=== PATIENT | female | born 1970 | race Caucasian/White ===

== ENCOUNTER 2025-04-16 07:22 | Day surgery (SDC) | payer BC ==
[~2025-04-16] VITALS: Ht 165.1 cm; Wt 73.9 kg
[2025-04-16] MEDS ORDERED: CELEXA40 M9 (07:32)
[2025-04-16] MEDS ORDERED: Lisinopril2.5 MG (07:33)
[2025-04-16] MEDS ORDERED: FAMO20 (07:33)
[2025-04-16] MEDS ORDERED: TRAZ50 (07:33)
[2025-04-16] MEDS ORDERED: EUTHYROX100 MC1 (07:33)
[2025-04-16 08:59] VITALS: BP 112/74
== END 2025-04-16 09:03 | disposition home or self-care (01) ==
LOC: ORSCSDS 07:22
PROVIDERS: Specialist
PROC: 0DB68ZX Excision of Stomach, Via Natural or Artificial Opening Endoscopic, Diagnostic (ICD-10-PCS; principal; 2025-04-16 08:15)
PROC: 0DB98ZX Excision of Duodenum, Via Natural or Artificial Opening Endoscopic, Diagnostic (ICD-10-PCS; principal; 2025-04-16 08:15)
PROC: 0DB58ZX Excision of Esophagus, Via Natural or Artificial Opening Endoscopic, Diagnostic (ICD-10-PCS; principal; 2025-04-16 08:15)
DX: K21.9 Gastro-esophageal reflux disease without esophagitis (principal); Z98.84 Bariatric surgery status; Z80.0 Family history of malignant neoplasm of digestive organs; H50.40 Unspecified heterotropia; L53.9 Erythematous condition, unspecified; K22.70 Barrett's esophagus without dysplasia; K44.9 Diaphragmatic hernia without obstruction or gangrene; Z87.891 Personal history of nicotine dependence; Z79.899 Other long term (current) drug therapy
CPT/HCPCS: 88305; 88342; J2704; J7120